=== PATIENT | female | born 1970 | race African-American/Black ===

== ENCOUNTER 2024-11-15 23:14 | Emergency (ER) | payer BC, OTHER ==
[2024-11-15] MEDS ORDERED: Ketorolac Tromethamine 30 MG (1 mL) VIAL ONE (23:50)
== END 2024-11-16 00:29 | disposition home or self-care (01) ==
LOC: ERS 23:14
DX: K04.7 Periapical abscess without sinus (principal); R03.0 Elevated blood-pressure reading, without diagnosis of hypertension
CPT/HCPCS: 96372; 99282; J1885